=== PATIENT | male | born 1990 | race Caucasian/White ===

== ENCOUNTER 2022-07-19 17:08 | Emergency (ER) | payer OTHER ==
[~2022-07-19 17:08] MED LIST: ADDERALL XR 3030 MG PO; BUSPAR5 MG PO; FLEXERIL10 MG PO; NAPROXEN500 MG PO
[2022-07-19] MEDS ORDERED: AMOXICILLIN500 MG PO (20:20)
== END 2022-07-19 20:51 | disposition home or self-care (01) ==
LOC: FER 17:08
DX: J03.90 Acute tonsillitis, unspecified (principal); K08.89 Other specified disorders of teeth and supporting structures; Z28.310 Unvaccinated for COVID-19
CPT/HCPCS: 99282; Q0162